=== PATIENT | male | born 1975 | race Caucasian/White ===

== ENCOUNTER 2018-04-05 18:58 | Emergency (ER) | END 2018-04-06 03:14 | disposition home or self-care (01) ==

== ENCOUNTER 2018-04-10 14:34 | Emergency (ER) | END 2018-04-10 16:59 | disposition home or self-care (01) ==

== ENCOUNTER 2018-04-11 11:12 | Inpatient (IN) | payer MEDICAID ==
[~2018-04-11] VITALS: Ht 175.3 cm; Wt 74.7 kg
[~2018-04-11 11:12] MED LIST: ACYC800T5 PO; CEPH-443 PO; HYDR-3980 PO; SULF1TAB31 PO
[2018-04-11] MEDS ORDERED: PIPER-TAZO 3.375 GM IV (PMX) 100 ML IVPB STA (11:50)
[2018-04-11] MEDS ORDERED: CLINDAMYCIN 900 MG/D5W (PMX) 50 ML IVPB STA (11:50)
[2018-04-11] MEDS ORDERED: SODIUM CHLORIDE 0.9% 1L BAG IV* STA (11:50)
[2018-04-11] MEDS ORDERED: morphine 4 MG/ML VIAL IV STA (11:50)
[2018-04-11] MEDS ORDERED: VANCOMYCIN 1 GM (PMX) 250 ML IVPB STA (11:50)
[2018-04-11] MEDS ORDERED: IBUPROFEN 600 MG TAB PO ONE (12:00)
[2018-04-11] MEDS ORDERED: ONDANSETRON 4 MG INJ IV PRN (13:00)
[2018-04-11] MEDS ORDERED: ACETAMINOPHEN 325 MG TAB PO PRN ×2 (13:00→16:30)
--- NOTE | 2018-04-11 14:50 | ERD ---
ER Documentation Chief Complaint Chief Complaint SEEN HERE YESTERDAY FOR SHINGLES RASH. TOLD TO COME BACK IF WORSE HPI 42-year-old male with no significant past medical history presenting with right arm pain and rash. He initially presented to the ER on 04/06/2018 for a vesicular rash to the right upper extremity. He was diagnosed with shingles and discharged with acyclovir and pain medications. He returned yesterday due to wo rsening symptoms and was diagnosed with a bacterial infection and prescribed antibiotics which he has been taking for the past 24 hours. He has not noticed any significant improvement. He feels like his symptoms are worsening with associated fevers and chills. He denies any history of IV drug use or immune compromise. He has been compliant with all of his medications. ROS All systems reviewed and are negative except as per history of present illness. Medications Home Meds Active Scripts Cephalexin* (Keflex*) 500 Mg Capsule, 500 MG PO QID for 10 Days, CAP Prov:GUILLE MICHAEL MD 04/10/18 Sulfamethoxazole/Trimethoprim* (Bactrim Ds* Tablet) 1 Each Tablet, 1 TAB PO BID, #20 TAB Prov:GUILLE MICHAEL MD 04/10/18 Hydrocodone/Acetaminophen ([place] 10-325 Tablet) 1 Each Tablet, 1 TAB PO Q6H PRN for PAIN, #20 TAB Prov:TONEY NEVAREZ 04/06/18 Acyclovir* (Zovirax*) 800 Mg Tablet, 800 MG PO 5 TIMES DAILY for 7 Days, TAB Prov:TONEY NEVAREZ 04/06/18 Allergies Allergies: Coded Allergies: No Known Allergy (Unverified , 04/11/18) PMhx/Soc Medical and Surgical Hx: pt denies Medical Hx, pt denies Surgical Hx Hx Alcohol Use: No Hx Substance Use: Yes (MARIJUANA) Hx Tobacco Use: Yes Smoking Status: Current some day smoker FmHx Family History: No diabetes Physical Exam Vitals Vital Signs Date Temp Pulse Resp B/P (MAP) Pulse Ox O2 O2 Flow FiO2 Time Delivery Rate 04/11/18 101.1 12:38 04/11/18 101.1 128 18 187/105 97 11:17 (132) Physical Exam Const: Mild distress secondary to pain, nontoxic Head: Atraumatic Eyes: Normal Conjunctiva ENT: Normal External Ears, Nose and Mouth. Neck: Full range of motion. No meningismus. Resp: Clear to auscultation bilaterally Cardio: Tachycardic with regular rhythm, no murmurs Abd: Soft, non tender, non distended. Normal bowel sounds Skin: Extensive tattoos of upper body. Right upper extremity with macular patchy rash extending from the wrist all the way up to the right shoulder. There appears to be ruptured vesicles with superficial ulceration of the skin. In the antecubital fossa, there is significant erythema with purulent drainage. No crepitus to palpation. Compartments soft. 2+ radial pulse. Tendon function intact. Back: No midline or flank tenderness Ext: No cyanosis, or edema Neur: Awake and alert, normal speech, moving all extremities. Strength and sensations intact. Psych: Normal Mood and Affect Result Diagram: 04/11/18 1200 04/11/18 1200 Results 24 hrs Laboratory Tests Test 04/11/18 12:00 04/11/18 12:10 White Blood Count 12.9 10^3/ul Red Blood Count 4.23 10^6/ul Hemoglobin 12.8 g/dl Hematocrit 37.7 % Mean Corpuscular Volume 89.1 fl Mean Corpuscular Hemoglobin 30.3 pg Mean Corpuscular Hemoglobin Concent 34.0 g/dl Red Cell Distribution Width 13.2 % Platelet Count 279 10^3/UL Mean Platelet Volume 8.7 fl Immature Granulocytes % 0.400 % Neutrophils % 72.9 % Lymphocytes % 18.6 % Monocytes % 6.1 % Eosinophils % 1.5 % Basophils % 0.5 % Nucleated Red Blood Cells % 0.0 /100WBC Immature Granulocytes # 0.050 10^3/ul Neutrophils # 9.4 10^3/ul Lymphocytes # 2.4 10^3/ul Monocytes # 0.8 10^3/ul Eosinophils # 0.2 10^3/ul Basophils # 0.1 10^3/ul Nucleated Red Blood Cells # 0.0 10^3/ul Prothrombin Time 14.3 Sec Prothrombin Time Ratio 1.1 INR International Normalized Ratio 1.09 Activated Partial Thromboplast Time 36.0 Sec Sodium Level 138 mmol/L Potassium Level 4.0 mmol/L Chloride Level 103 mmol/L Carbon Dioxide Level 27 mmol/L Anion Gap 8 Blood Urea Nitrogen 12 mg/dl Creatinine 0.76 mg/dl Est Glomerular Filtrat Rate mL/min > 60 mL/min Glucose Level 117 mg/dl Calcium Level 8.5 mg/dl Total Bilirubin 0.5 mg/dl Direct Bilirubin 0.00 mg/dl Indirect Bilirubin 0.5 mg/dl Aspartate Amino Transf (AST/SGOT) 203 IU/L Alanine Aminotransferase (ALT/SGPT) 512 IU/L Alkaline Phosphatase 136 IU/L Total Protein 8.4 g/dl Albumin 3.5 g/dl Globulin 4.90 g/dl Albumin/Globulin Ratio 0.71 POC Venous Lactate 1.3 mmol/L Current Medications Medications Dose Sig/Juan Start Time Status Last (Trade) Ordered Route PRN Stop Time Admin Dose Reason Admin Sodium 2,300 ml BOLUS OVER 2 04/11/18 DC 04/11/18 Chloride HOURS STAT 11:50 12:37 (NS) IV* 04/11/18 11:53 Morphine 4 mg ONCE STAT 04/11/18 DC 04/11/18 Sulfate IV 11:50 12:39 (morphine) 04/11/18 11:53 Vancomycin 250 ml @ ONCE STAT 04/11/18 DC HCl 125 mls/hr IVPB 11:50 04/11/18 13:49 Clindamycin 50 ml @ 50 ONCE STAT 04/11/18 DC 04/11/18 HCl/ mls/hr IVPB 11:50 11:50 Dextrose 04/11/18 12:49 Piperacillin 100 ml @ ONCE STAT 04/11/18 DC 04/11/18 Sod/ 200 mls/hr IVPB 11:50 12:37 Tazobactam 04/11/18 Sod 12:19 Ibuprofen 600 mg ONCE ONCE 04/11/18 DC 04/11/18 (Motrin) PO 12:00 12:38 04/11/18 12:01 Ondansetron 4 mg BRIDGE ORDER 04/11/18 HCl (Zofran PRN IV 13:00 Inj) NAUSEA AND/OR 04/12/18 VOMITING 12:59 650 mg ER BRIDGE 04/11/18 Acetaminophen PRN PO MILD 13:00 (Tylenol PAIN(1-3)OR 04/12/18 Tab) ELEVATED TEMP 12:59 Procedures/MDM EMERGENT LABS AND DIAGNOSTIC STUDIES: Lab Results above were reviewed and interpreted by me. CBC: Leukocytosis consistent with acute infection CMP: Transaminitis of unclear etiology. No evidence of electrolyte abnormality, renal failure, hypoglycemia, or biliary obstruction Lactate within normal limits without evidence of sepsis or tissue hypoperfusion Radiology Results as interpreted by Radiology below were reviewed by Isma Horne MD: Right elbow x-ray is unremarkable with no evidence of soft tissue gas Initial Nursing notes reviewed. Previous Medical Records requested via the Electronic Health Record. EMERGENCY DEPARTMENT COURSE / MEDICAL DECISION MAKING: Patient likely has right upper extremity shingles that became superinfected and now has an extensive cellulitis of the right upper extremity failing outpatient antibiotic treatment. Here he has a fever and is tachycardic so sepsis workup was initiated. Broad-spectrum antibiotics were given. I doubt necrotizing soft tissue infection. However patient's infectious symptoms have not stabilized and the patient is at risk of rapid decompensation. The patient will be admitted for careful hydration, antibiotic therapy, and infectious source control. Severe Sepsis Assessment: Infectious Source: Right upper extremity cellulitis Severe Sepsis Managment: Blood Cultures X 2 before broad spectrum antibiotics initiated within 3 hours of recognition. 30 ml/kg NS bolus Completed Initial Lactate: normal Repeat Lactate not indicated as initial < 2.0 Critical Care: Time: 35 minutes Treatments/Evaluations: Emergent fluid management, while maintaining close respiratory support. Immediate broad spectrum antibiotic therapy. Simultaneous assessment for possible sources in order to direct therapy. Consideration for invasive and chemical support to prevent respiratory or cardiac collapse. Septic Shock Assessment (1 hour post 30 ml/kg fluid bolus): Hypotension (SBP < 90 or 40 mmHg drop, MAP < 65): No Lactic acid > 4.0 No Accepting Care Team: Current data and ongoing care discussed. Time: Time of admission Primary Provider: Dr. Rodriguez Outstanding Data: Blood and wound cultures Departure Diagnosis: Primary Impression: Right arm cellulitis Additional Impressions: Zoster with other complications Shingles rash Herpes zoster complications: with other complications Qualified Codes: B0 2.8 - Zoster with other complications Condition: Serious YOSEF HORNE MD Apr 11, 2018 14:50
--- NOTE | 2018-04-11 16:12 | HP ---
Date/Time of Note Date/Time of Note DATE: 04/11/18 TIME: 16:01 Assessment/Plan VTE Prophylaxis Pharmacological prophylaxis: heparin Lines/Catheters IV Catheter Type (from Nrs): Saline Lock Assessment/Plan Hospital Course 42 yo male with recent shingles infection of RUE which has now developed worsening superinfection - MRI RUE to r/o abscess - Continue vanco/zosyn - Acyclovir - ID consultation Transaminitis: - Suspect related to VZV infection but perhaps drug effect. RUQ US, trend LFTs and INR Result Diagram: 04/11/18 1200 04/11/18 1200 Results 24hrs Laboratory Tests Test 04/11/18 12:00 04/11/18 12:10 White Blood Count 12.9 #H Red Blood Count 4.23 L Hemoglobin 12.8 L Hematocrit 37.7 L Mean Corpuscular Volume 89.1 Mean Corpuscular Hemoglobin 30.3 Mean Corpuscular Hemoglobin Concent 34.0 Red Cell Distribution Width 13.2 Platelet Count 279 # Mean Platelet Volume 8.7 Immature Granulocytes % 0.400 Neutrophils % 72.9 Lymphocytes % 18.6 Monocytes % 6.1 Eosinophils % 1.5 Basophils % 0.5 Nucleated Red Blood Cells % 0.0 Immature Granulocytes # 0.050 H Neutrophils # 9.4 H Lymphocytes # 2.4 Monocytes # 0.8 Eosinophils # 0.2 Basophils # 0.1 Nucleated Red Blood Cells # 0.0 Prothrombin Time 14.3 Prothrombin Time Ratio 1.1 INR International Normalized Ratio 1.09 Activated Partial Thromboplast Time 36.0 H Sodium Level 138 Potassium Level 4.0 Chloride Level 103 Carbon Dioxide Level 27 Anion Gap 8 Blood Urea Nitrogen 12 Creatinine 0.76 Est Glomerular Filtrat Rate mL/min > 60 Glucose Level 117 Calcium Level 8.5 Total Bilirubin 0.5 Direct Bilirubin 0.00 Indirect Bilirubin 0.5 Aspartate Amino Transf (AST/SGOT) 203 H Alanine Aminotransferase (ALT/SGPT) 512 H Alkaline Phosphatase 136 H Total Protein 8.4 H Albumin 3.5 Globulin 4.90 H Albumin/Globulin Ratio 0.71 POC Venous Lactate 1.3 HPI/ROS Admit Date/Time Admit Date/Time Hx of Present Illness 42 yo male without sig PMH who presents again with arm pain, rash and fever Patient developed shingles a week ago. Lesions started as vesicles accross RUE dermatome. Developed overlying cellulitis and came to ED. Prescribed bactrim, cipro and acyclovir. Lesions have now popped. Pus now being expressed from elbow lesion. Can't bend elbow. Having fevers. PMH/Family/Social Past Medical History Medical History: no pertinent history Medications Current Medications Ondansetron HCl (Zofran Inj) 4 mg BRIDGE ORDER PRN IV NAUSEA AND/OR VOMITING; Start 04/11/18 at 13:00; Stop 04/12/18 at 12:59 Acetaminophen (Tylenol Tab) 650 mg ER BRIDGE PRN PO MILD PAIN(1-3)OR ELEVATED TEMP; Start 04/11/18 at 13:00; Stop 04/12/18 at 12:59 Coded Allergies: No Known Allergy (Unverified , 04/11/18) Past Surgical History Past Surgical Hx: no surgical history Family History Significant Family History: no pertinent family hx Social History Alcohol Use: none Smoking Status: Current some day smoker Drug Use: none Exam/Review of Systems Vital Signs Vitals Vital Signs Date Temp Pulse Resp B/P (MAP) Pulse Ox O2 O2 Flow FiO2 Time Delivery Rate 04/11/18 100.5 88 18 148/99 97 15:49 (115) Exam Exam Well appearing no distress AOx3 Open erosions of RUE from shoulder externally down to elbow. Inner forearm with pus lesions. Erythema throughout. Warm throughout LISA OVIEDO MD Apr 11, 2018 16:12
[2018-04-11] MEDS ORDERED: VANCOMYCIN IV PER PHARMACY XX SCH (16:30)
[2018-04-11] MEDS ORDERED: NACL 0.9% 3 ML SYG IV SCH (16:30)
[2018-04-11 17:00] VITALS: BP 148/95; PULSE 76; RESP 18
[2018-04-11 17:58] VITALS: Ht 175.3 cm; Wt 74.7 kg
[2018-04-11] MEDS ORDERED: PIPER-TAZO 3.375 GM IV (PMX) 100 ML IVPB SCH (18:00)
--- NOTE | 2018-04-11 18:01 | NUR ---
Received patient from ED in stable condition .Alessandra WNL .Skin assessment and wound care done ,pictures done per protocol .Patient come with a bag of Vancomycine running .Pharmacy aware.Patient placed on airborne and contact isolation.Call light within reach Full report will be given to next shift RN.
[2018-04-11] MEDS: HYDROCODONE/APAP (5/325) TAB PO PRN (18:27)
--- NOTE | 2018-04-11 18:29 | NUR ---
VANCO PER RX: 42M 5FT 9 IN. 75 KG SCR 0.76 WBC 12.9 Problem List: Recent shingles infection of RUE which has now developed worsening superinfection Current ABXs: VANCO, ZOSYN, VALTREX Comments/Plan: VANCO 1 GM GIVEN AT ER FOLLOWED BY 750 MG IVPB Q8H. TROUGH TOMORROW.
[2018-04-11] MEDS: PIPER-TAZO 3.375 GM IV (PMX) 100 ML IVPB SCH ×2 (18:57→23:48)
[2018-04-11 19:36] VITALS: BP 149/91; PULSE 79; RESP 18
[2018-04-11] MEDS: VANCOMYCIN 750 MG in SOD CHLORIDE 0.9% 150 ML IVPB SCH (21:38)
[2018-04-11] MEDS: HEPARIN 5,000 UNIT/1 ML VIAL SC SCH (21:46)
[2018-04-11] MEDS: VALACYCLOVIR 500 MG TAB PO SCH (22:05)
[2018-04-12 01:53] VITALS: BP 157/98; PULSE 66; RESP 18
[2018-04-12] MEDS: PIPER-TAZO 3.375 GM IV (PMX) 100 ML IVPB SCH (05:11)
[2018-04-12] MEDS: HYDROCODONE/APAP (5/325) TAB PO PRN ×2 (05:15→13:17)
[2018-04-12] MEDS: VANCOMYCIN 750 MG in SOD CHLORIDE 0.9% 150 ML IVPB SCH ×3 (06:09→21:39)
--- NOTE | 2018-04-12 06:29 | NUR ---
ASLEEP RESTING COMFORTABLY IN BED. NO ACUTE CHANGES OVERNIGHT. ALL DUE MEDS GIVEN AND TOLERATED WELL. CONTINUES ON AIRBORNE PRECAUTIONS FOR SHINGLES. PAIN MEDICATION ADMINISTERED X1 AND EFFECTIVE. HOURLY ROUNDING DONE. PT ABLE TO AMBULATE WITH STEADY GAIT. ALL NEEDS ATTENDED. CALL LIGHT WITHIN EASY REACH. WILL ENDORSE TO NEXT SHIFT.
--- NOTE | 2018-04-12 07:48 | NUR ---
Critical Result recieved: Nurse Clarissa could not answer call from lab, Critical results on HIV testing received and endorsed to Clarissa primary Nurse.
[2018-04-12 08:10] VITALS: BP 151/83; PULSE 85; RESP 18
[2018-04-12] MEDS: VALACYCLOVIR 500 MG TAB PO SCH ×3 (09:57→21:39)
[2018-04-12] MEDS: HEPARIN 5,000 UNIT/1 ML VIAL SC SCH ×2 (10:01→21:44)
--- NOTE | 2018-04-12 10:13 | CONS ---
Date/Time of Note Date/Time of Note DATE: 04/12/18 TIME: 10:02 Assessment/Plan Assessment/Plan Chief Complaint/Hosp Course 1) VZV with superinfection with staph continue with high dose valtrex and vanco, will d/c zosyn await for drug sensi's to his staph 2) hepatitis he is HIV is positive but he tested neg about one year ago according to the patient he was told that he had hepatitis in the past but he is not sure which one, when I mentioned hep C he said that he cleared this on his own I will order CD4 counts, HIV PCR hep C pcr has already been ordered shingles itself can also cause increase in LFT's his LFT's are decreasing Consultation Date/Type/Reason Admit Date/Time 04/11/18 Date of Consultation: Apr 12, 2018 Type of Consult ID Hx of Present Illness pt has had a painful rash to RUE for over a week He was seen in ER and Rx with oral acyclovir He then developed redness to the arm and was given keflex/bactrim and the pain/redness of arm had gotten worse and he was admitted to the hospital Pt has MOON prior to all of this but it is better today no N, V, D, SOB no dysuria, joint pains His MOON is pounding in nature and causes some blurriness of this R eye Past Medical History Medical History: no pertinent history Medications Current Medications Vancomycin HCl (Vanco Iv Per Pharmacy) VANCOMYCIN PER PHARMACY PER PROTOCOL XX ; Start 04/11/18 at 16:30 Valacyclovir HCl (Valtrex) 1,000 mg TID PO Last administered on 04/12/18at 09:57; Admin Dose 1,000 MG; Start 04/11/18 at 21:00 IV Flush (NS 3 ml) 3 ml PER PROTOCOL IV ; Start 04/11/18 at 16:30 Acetaminophen (Tylenol Tab) 650 mg Q6H PRN PO PAIN LEVEL 1-3 OR FEVER; Start 04/11/18 at 16:30 Acetaminophen/ Hydrocodone Bitart ([place] (5/325)) 2 tab Q6H PRN PO SEVERE PAIN LEVEL 7-10 Last administered on 04/12/18at 05:15; Admin Dose 2 TAB; Start 04/11/18 at 16:30 Heparin Sodium (Porcine) (Heparin (5000 Units/1ml)) 5,000 unit Q12 SC Last administered on 04/12/18at 10:01; Admin Dose 5,000 UNIT; Start 04/11/18 at 21:00 Piperacillin Sod/ Tazobactam Sod 100 ml @ 200 mls/hr Q6 IVPB Last administered on 04/12/18at 05:11; Admin Dose 200 MLS/HR; Start 04/11/18 at 18:00 Vancomycin HCl 750 mg/Sodium Chloride 150 ml @ 75 mls/hr Q8H IVPB Last administered on 04/12/18at 06:09; Admin Dose 75 MLS/HR; Start 04/11/18 at 22:00 Miscellaneous Information (*Rx Drug Level Order Reminder*) VANCO TROUGH ON 03/20... ONCE ONCE XX ; Start 04/13/18 at 21:00; Stop 04/13/18 at 21:01 Allergies: Coded Allergies: No Known Allergy (Unverified , 04/11/18) Past Surgical History Past Surgical Hx: no surgical history Social History Alcohol Use: none Smoking Status: Current every day smoker Drug Use: none Exam/Review of Systems Vital Signs Vitals Vital Signs Date Temp Pulse Resp B/P (MAP) Pulse Ox O2 O2 Flow FiO2 Time Delivery Rate 04/12/18 98.3 85 18 151/83 97 Room Air 08:10 (105) Intake and Output 04/11/18 04/11/18 04/12/18 1515:00 23:00 07:00 IntakeIntake Total 100 ml 350 ml BalanceBalance 100 ml 350 ml Exam Constitutional: alert, oriented Eyes: nl sclera ENMT: mucosa pink and moist Neck: supple Respiratory: clear to auscultation Cardiovascular: regular rate and rhythm Gastrointestinal: soft, non-tender Extremities: other (RUE has scabs and pustules, scattered and some firmness of skin around large draining lesion with surrounding redness) Medications Medications Current Medications Vancomycin HCl (Vanco Iv Per Pharmacy) VANCOMYCIN PER PHARMACY PER PROTOCOL XX ; Start 04/11/18 at 16:30 Valacyclovir HCl (Valtrex) 1,000 mg TID PO Last administered on 04/12/18at 09:57; Admin Dose 1,000 MG; Start 04/11/18 at 21:00 IV Flush (NS 3 ml) 3 ml PER PROTOCOL IV ; Start 04/11/18 at 16:30 Acetaminophen (Tylenol Tab) 650 mg Q6H PRN PO PAIN LEVEL 1-3 OR FEVER; Start 04/11/18 at 16:30 Acetaminophen/ Hydrocodone Bitart ([place] (5/325)) 2 tab Q6H PRN PO SEVERE PAIN LEVEL 7-10 Last administered on 04/12/18at 05:15; Admin Dose 2 TAB; Start 04/11/18 at 16:30 Heparin Sodium (Porcine) (Heparin (5000 Units/1ml)) 5,000 unit Q12 SC Last administered on 04/12/18at 10:01; Admin Dose 5,000 UNIT; Start 04/11/18 at 21:00 Piperacillin Sod/ Tazobactam Sod 100 ml @ 200 mls/hr Q6 IVPB Last administered on 04/12/18at 05:11; Admin Dose 200 MLS/HR; Start 04/11/18 at 18:00 Vancomycin HCl 750 mg/Sodium Chloride 150 ml @ 75 mls/hr Q8H IVPB Last administered on 04/12/18at 06:09; Admin Dose 75 MLS/HR; Start 04/11/18 at 22:00 Miscellaneous Information (*Rx Drug Level Order Reminder*) VANCO TROUGH ON 03/20... ONCE ONCE XX ; Start 04/13/18 at 21:00; Stop 04/13/18 at 21:01 TANESHA KWONG MD Apr 12, 2018 10:13
--- NOTE | 2018-04-12 10:15 | PN ---
Date/Time of Note Date/Time of Note DATE: 04/12/18 TIME: 10:13 Assessment/Plan VTE Prophylaxis Risk score (from Ns)>0 risk: 1 SCD applied (from Ns): Yes Pharmacological prophylaxis: heparin Lines/Catheters IV C[facility]ter Type [facility]from [facility]): Peripheral IV Assessment/Plan Hospital Course 42 yo male with recent shingles infection of RUE which has now developed worsening superinfection/cellulitis, found to have new dx of HIV - MRI RUE negative for abscess - Await culture results - Continue vanco/zosyn - Valtrex - ID consultation HIV: - PCR and Cd4 - ID consultation Transaminitis: - Suspect related to VZV infection but perhaps drug effect vs acute HIV. RUQ US, trend LFTs and INR Dispo pending improvement in condition Result Diagram: 04/12/18 0441 04/12/18 0440 Results 24hrs Laboratory Tests Test 04/11/18 12:00 04/11/18 12:10 04/11/18 15:48 04/12/18 04:40 White Blood 12.9 #H Count Red Blood Count 4.23 L Hemoglobin 12.8 L Hematocrit 37.7 L Mean Corpuscular 89.1 Volume Mean Corpuscular 30.3 Hemoglobin Mean Corpuscular 34.0 Hemoglobin Yan[place] nt Red Cell 13.2 Distribution Width Platelet Count 279 # Mean Platelet 8.7 Volume Immature 0.400 Granulocytes % Neutrophils % 72.9 Lymphocytes % 18.6 Monocytes % 6.1 Eosinophils % 1.5 Basophils % 0.5 Nucleated Red 0.0 Blood Cells % Immature 0.050 H Granulocytes # Neutrophils # 9.4 H Lymphocytes # 2.4 Monocytes # 0.8 Eosinophils # 0.2 Basophils # 0.1 Nucleated Red 0.0 Blood Cells # Prothrombin Time 14.3 Prothrombin Time 1.1 Ratio INR 1.09 International Normalized Ratio Activated 36.0 H Partial Thrombop last Time Sodium Level 138 140 Potassium Level 4.0 4.0 Chloride Level 103 103 Carbon Dioxide 27 26 Level Anion Gap 8 11 Blood Urea 12 14 Nitrogen Creatinine 0.76 0.75 Est Glomerular > 60 > 60 Filtrat Rate mL/min Glucose Level 117 96 Calcium Level 8.5 8.5 Total Bilirubin 0.5 0.5 Direct Bilirubin 0.00 0.00 Indirect 0.5 0.5 Bilirubin Aspartate Amino 203 H 192 H Transf (AST/SGOT ) Alanine 512 H 441 H Aminotransferase (ALT/SGPT) Alkaline 136 H 130 H Phosphatase Total Protein 8.4 H 7.5 Albumin 3.5 3.3 Globulin 4.90 H 4.20 H Albumin/Globulin 0.71 0.78 Ratio POC Venous 1.3 Lactate Lactic Acid 0.8 Level Hemoglobin A1c 5.2 Hepatitis B NEGATIVE Surface Antigen Hepatitis B Core REACTIVE H Total Antibody Hepatitis C REACTIVE H Antibody HIV (1&2) REACTIVE H Antibody Test 04/12/18 04:41 White Blood 7.2 # Count Red Blood Count 4.39 L Hemoglobin 13.1 L Hematocrit 39.7 L Mean Corpuscular 90.4 Volume Mean Corpuscular 29.8 Hemoglobin Mean Corpuscular 33.0 Hemoglobin Yaneth nt Red Cell 13.2 Distribution Width Platelet Count 271 Mean Platelet 9.0 Volume Immature 0.300 Granulocytes % Neutrophils % 62.0 Lymphocytes % 23.7 Monocytes % 7.1 Eosinophils % 6.1 Basophils % 0.8 Nucleated Red 0.0 Blood Cells % Immature 0.020 Granulocytes # Neutrophils # 4.4 Lymphocytes # 1.7 Monocytes # 0.5 Eosinophils # 0.4 Basophils # 0.1 Nucleated Red 0.0 Blood Cells # Subjective 24 Hr Interval Summary Free Text/Dictation Arm improving. MRI without abscess HIV Ab+. This is new diagnosis. I discussed it with the patient who is understandably upset He was aware of HCV + but says he cleared virus Exam/Review of Systems Vital Signs Vitals Vital Signs Date Temp Pulse Resp B/P (MAP) Pulse Ox O2 O2 Flow FiO2 Time Delivery Rate 04/12/18 98.3 85 18 151/83 97 Room Air 08:10 (105) Intake and Output 04/11/18 04/11/18 04/12/18 1515:00 23:00 07:00 IntakeIntake Total 100 ml 350 ml BalanceBalance 100 ml 350 ml Medications Medications Current Medications Vancomycin HCl (Vanco Iv Per Pharmacy) VANCOMYCIN PER PHARMACY PER PROTOCOL XX ; Start 04/11/18 at 16:30 Valacyclovir HCl (Valtrex) 1,000 mg TID PO Last administered on 04/12/18at 09:57; Admin Dose 1,000 MG; Start 04/11/18 at 21:00 IV Flush (NS 3 ml) 3 ml PER PROTOCOL IV ; Start 04/11/18 at 16:30 Acetaminophen (Tylenol Tab) 650 mg Q6H PRN PO PAIN LEVEL 1-3 OR FEVER; Start 04/11/18 at 16:30 Acetaminophen/ Hydrocodone Bitart ([place] (5/325)) 2 tab Q6H PRN PO SEVERE PAIN LEVEL 7-10 Last administered on 04/12/18at 05:15; Admin Dose 2 TAB; Start 04/11/18 at 16:30 Heparin Sodium (Porcine) (Heparin (5000 Units/1ml)) 5,000 unit Q12 SC Last administered on 04/12/18at 10:01; Admin Dose 5,000 UNIT; Start 04/11/18 at 21:00 Vancomycin HCl 750 mg/Sodium Chloride 150 ml @ 75 mls/hr Q8H IVPB Last administered on 04/12/18at 06:09; Admin Dose 75 MLS/HR; Start 04/11/18 at 22:00 Miscellaneous Information (*Rx Drug Level Order Reminder*) VANCO TROUGH ON 03/20... ONCE ONCE XX ; Start 04/13/18 at 21:00; Stop 04/13/18 at 21:01 LISA OVIEDO MD Apr 12, 2018 10:15
[2018-04-12 14:08] VITALS: BP 160/95; PULSE 93; RESP 16
[2018-04-12] MEDS ORDERED: ASA/ACETAMINOPHEN/CAFF TAB PO ONE (17:00)
--- NOTE | 2018-04-12 19:05 | NUR ---
End of shift summary: Patient in stable condition . patient has episode of migraine .Excedrin-2 tab given once per order . consulted patient today .New labs ordered for AM .US liver done for today .Wound care consult pending .Full report will be given to next shift RN.
[2018-04-12 20:01] VITALS: BP 151/91; PULSE 94; RESP 16
--- NOTE | 2018-04-12 21:58 | NUR ---
VANCOMYCIN PER PHARMACY NOTE VANCO TR= 8.5 OK THAT VANCOMYCIN 750MG IV HAS ALREADY BEEN GIVEN. INCREASE NEXT VANCOMYCIN DOSE TO 1 GRAM IV Q8 HOURS FOR NOW. NEXT DOSE 04/13 AT 0600. NEXT VANCO TR PRIOR TO 4TH DOSE. PHARMACY WILL FOLLOW. THANK YOU.
--- NOTE | 2018-04-12 23:08 | NUR ---
VANCO Vanco 750MG started at 2138. Vanvo 750MG was d/c at 2152 and increased to 1GM d/t low vanco trough level of 8.5. Called pharmacist to confirm if I should stop current 750MG bag that is currently running and he said it is ok to finish bag and new 1GM bag will start at 0400 tomorrow. Will finish current bag that is running.
[2018-04-13 01:31] VITALS: BP 172/115; PULSE 94; RESP 16
--- NOTE | 2018-04-13 01:48 | NUR ---
ELEVATED BP Notified Dr. Rivera of high BP since 04/12/18. Pt denies pain. Received new orders for Hydralazine 10MG IV Q4Hour PRN and give 1 dose now. Will carry out new orders. Will continue to monitor.
[2018-04-13] MEDS ORDERED: hydrALAzine 20 MG INJ IV PRN (02:00)
[2018-04-13] MEDS ORDERED: VANCOMYCIN 1 GM 250 ML IVPB SCH (04:00)
[2018-04-13 04:13] VITALS: BP 163/104; PULSE 82; RESP 20
[2018-04-13] MEDS: HYDROCODONE/APAP (5/325) TAB PO PRN (04:29)
--- NOTE | 2018-04-13 06:18 | NUR ---
EOSS No acute changes in patient's condition. BP high. Hydralazine given X1. Meds partially effective. Pt A &OX3. All due meds given. Pt c/o 11/26 pain in right arm X1. [place] given. Pain meds effective. Contact and airborne precautions maintained. Dressing change done. Hourly rounding done. Bed left in lowest position with bed alarm on. Call light left within reach.
--- NOTE | 2018-04-13 07:23 | CONS ---
Date/Time of Note Date/Time of Note DATE: 04/13/18 TIME: 07:17 Assessment/Plan Assessment/Plan Chief Complaint/Hosp Course 1) VZV with superinfection with staph continue with high dose valtrex and vanco, will d/c zosyn await for drug sensi's to his staph 04/13 - MRSA of wound resistant to bactrim but sensitive to doxy d/c vanco and start doxycycline for 10 days at 100mg BID continue valtrex for another 3 days Rx left with nurse ok for d/c from ID perspective 2) hepatitis he is HIV is positive but he tested neg about one year ago according to the patient he was told that he had hepatitis in the past but he is not sure which one, when I mentioned hep C he said that he cleared this on his own I will order CD4 counts, HIV PCR hep C pcr has already been ordered shingles itself can also cause increase in LFT's his LFT's are decreasing 04/13 - liver u/s was ok a.m. labs are pending but if further improved ok for d/c 3)HIV 04/13 - instructed pt to call back to Dr. rivero regard results of his CD4, HIV PCR and Hep C PCR Consultation Date/Type/Reason Admit Date/Time Apr 12, 2018 at 13:19 Initial Consult Date 04/12/18 Type of Consult ID 24 HR Interval Summary Free Text/Dictation pt states no longer has pain to R arm no N, V, D Exam/Review of Systems Vital Signs Vitals Vital Signs Date Temp Pulse Resp B/P (MAP) Pulse Ox O2 O2 Flow FiO2 Time Delivery Rate 04/13/18 82 20 163/104 96 Room Air 04:13 (123) 04/13/18 97.9 01:31 Intake and Output 04/12/18 04/12/18 04/13/18 1515:00 23:00 07:00 IntakeIntake Total 840 ml 630 ml 400 ml BalanceBalance 840 ml 630 ml 400 ml Exam Constitutional: alert, oriented Eyes: nl sclera Respiratory: clear to auscultation Cardiovascular: regular rate and rhythm Extremities: other (R arm, scabs with some open wounds that are weeping but less so, many had dried up) Medications Medications Current Medications Vancomycin HCl (Vanco Iv Per Pharmacy) VANCOMYCIN PER PHARMACY PER PROTOCOL XX ; Start 04/11/18 at 16:30 Valacyclovir HCl (Valtrex) 1,000 mg TID PO Last administered on 04/12/18at 21:39; Admin Dose 1,000 MG; Start 04/11/18 at 21:00 IV Flush (NS 3 ml) 3 ml PER PROTOCOL IV ; Start 04/11/18 at 16:30 Acetaminophen (Tylenol Tab) 650 mg Q6H PRN PO PAIN LEVEL 1-3 OR FEVER; Start 04/11/18 at 16:30 Acetaminophen/ Hydrocodone Bitart ([place] (5/325)) 2 tab Q6H PRN PO SEVERE PAIN LEVEL 7-10 Last administered on 04/13/18at 04:29; Admin Dose 2 TAB; Start 04/11/18 at 16:30 Heparin Sodium (Porcine) (Heparin (5000 Units/1ml)) 5,000 unit Q12 SC Last administered on 04/12/18at 21:44; Admin Dose 5,000 UNIT; Start 04/11/18 at 21:00 Miscellaneous Information (*Rx Drug Level Order Reminder*) VANCO TROUGH ON 03/20... ONCE ONCE XX ; Start 04/13/18 at 21:00; Stop 04/13/18 at 21:01 Vancomycin HCl 250 ml @ 125 mls/hr Q8H IVPB Last administered on 04/13/18at 04:10; Admin Dose 125 MLS/HR; Start 04/13/18 at 04:00 Hydralazine HCl (Apresoline) 10 mg Q4H PRN IV ELEVATED DIASTOLIC BP Last administered on 04/13/18at 02:07; Admin Dose 10 MG; Start 04/13/18 at 02:00 TANESHA KWONG MD Apr 13, 2018 07:23
[2018-04-13 07:40] VITALS: BP 166/112; PULSE 79; RESP 20
[2018-04-13] MEDS: HEPARIN 5,000 UNIT/1 ML VIAL SC SCH (08:53)
[2018-04-13] MEDS: VALACYCLOVIR 500 MG TAB PO SCH (08:53)
[2018-04-13] MEDS ORDERED: DOXYCYCLINE 100 MG TAB PO SCH (09:00)
[2018-04-13] MEDS ORDERED: VALA500T PO (12:30)
[2018-04-13] MEDS ORDERED: DOXY100T2 PO (12:30)
--- NOTE | 2018-04-13 12:31 | PDOCDIS ---
Discharge Instructions DIAGNOSIS Discharge Diagnosis Shingles Cellulitis HIV CONDITION [id number] Patient Condition: [id number] Stable HOME CARE INSTRUCTIONS: [id number] Diet Instructions: [id number] Regular [id number] Special Diet: Ghlsg6s Regular FOLLOW UP/APPOINTMENTS Follow-up Plan Make an appointment in HIV clinic [facility] to get started on therapy. You should have your blood work checked in the next 1-2 weeks to monitor your labs and specifically your liver panel to ensure it is normal. Return to the hospital if you have any concerning symptoms LISA OVIEDO MD Apr 13, 2018 12:31
--- NOTE | 2018-04-13 12:40 | DS ---
Date/Time of Note Date/Time of Note DATE: 04/13/18 TIME: 12:39 Discharge Summary Admission/Discharge Info Admit Date/Time Apr 12, 2018 at 13:19 Discharge Date/Time Discharge Diagnosis Shingles Cellulitis HIV Patient Condition: Stable Hx of Present Illness 42 yo male without sig PMH who presents again with arm pain, rash and fever Patient developed shingles a week ago. Lesions started as vesicles accross RUE dermatome. Developed overlying cellulitis and came to ED. Prescribed bactrim, cipro and acyclovir. Lesions have now popped. Pus now being expressed from elbow lesion. Can't bend elbow. Having fevers. Hospital Course 42 yo male with recent shingles infection of RUE which has now developed w orsening superinfection/cellulitis, found to have new dx of HIV Presented with sepsis. Found to have superinfection of shingles lesions of RUE. MRI showed no evidence of abcess. Treated wtih IV vanco/zosyn. Infection improved and sepsis resolved. Found to have HIV positive status and referred to outpatient clinic. Seen by Dr Neal who recommended outpatient follow up and completion of PO doxycline course Home Meds Active Scripts Doxycycline* (Vibramycin*) 100 Mg Tab, 100 MG PO BID for 10 Days, TAB Prov:LISA OVIEDO MD 04/13/18 Valacyclovir Hcl* (Valacyclovir Hcl*) 500 Mg Tablet, 1000 MG PO TID for 3 Days, #9 TAB Prov:LISA OVIEDO MD 04/13/18 Discontinued Scripts Cephalexin* (Keflex*) 500 Mg Capsule, 500 MG PO QID for 10 Days, CAP Prov:GUILLE MICHAEL MD 04/10/18 Sulfamethoxazole/Trimethoprim* (Bactrim Ds* Tablet) 1 Each Tablet, 1 TAB PO BID, #20 TAB Prov:GUILLE MICHAEL MD 04/10/18 Hydrocodone/Acetaminophen (Kiln 10-325 Tablet) 1 Each Tablet, 1 TAB PO Q6H PRN for PAIN, #20 TAB Prov:TONEY NEVAREZ 04/06/18 Acyclovir* (Zovirax*) 800 Mg Tablet, 800 MG PO 5 TIMES DAILY for 7 Days, TAB Prov:TONEY NEVAREZ 04/06/18 Follow-up Plan Make an appointment in HIV clinic [facility] to get started on therapy. You should have your blood work checked in the next 1-2 weeks to monitor your labs and specifically your liver panel to ensure it is normal. Return to the hospital if you have any concerning symptoms Primary Care Provider Care Physician No Primary Pending Labs Laboratory Tests Test 04/12/18 20:58 04/13/18 06:17 Vancomycin Level Trough 8.5 ug/ml (10.0-20.0) Sodium Level 139 mmol/L (135-144) Potassium Level 4.1 mmol/L (3.5-5.1) Chloride Level 103 mmol/L (97-110) Carbon Dioxide Level 27 mmol/L (21-31) Anion Gap 9 (5-13) Blood Urea Nitrogen 14 mg/dl (7-20) Creatinine 0.70 mg/dl (0.61-1.24) Est Glomerular Filtrat > 60 mL/min (>60) Rate mL/min Glucose Level 104 mg/dl (70-220) Calcium Level 9.0 mg/dl (8.4-10.2) Total Bilirubin 0.3 mg/dl (0.2-1.3) Direct Bilirubin 0.00 mg/dl (0.00-0.20) Indirect Bilirubin 0.3 mg/dl (0-1.1) Aspartate Amino Transf (AST/SGOT) 222 IU/L (15-46) Alanine 430 IU/L (13-69) Aminotransferase (ALT/SGPT) Alkaline Phosphatase 143 IU/L (42-121) Total Protein 7.9 g/dl (6.1-8.1) Albumin 3.6 g/dl (3.3-4.9) Globulin 4.30 g/dl (1.3-3.2) Albumin/Globulin Ratio 0.83 LISA OVIEDO MD Apr 13, 2018 12:40
--- NOTE | 2018-04-13 12:43 | NUR ---
AOX4, D/C IN STABLE CONDITION WITH BELONGINGS, REFUSED WHEELCHAIR ESCORT OFF THE UNIT, VERBALIZED UNDERSTANDING D/C INSTRUCTIONS REGARDING FOLLOW UP CARE, PRESCRIBED MEDICATIONS AND HIV CLINIC RESOURCES DISCUSSED WITH RESUME WRITER
--- NOTE | 2018-04-13 13:28 | NUR ---
SS NOTE: PROVIDED RESOURCES SW REFERRED TO PT REGARDING POSSIBLE HOMELESS ISSUES AND PROVISION OF HIV RESOURCES. PT IS 42 YR OLD MALE ADMITTED FROM HOME FOR RUE CELLULITIS. SW MET WITH PT AT BEDSIDE, PT APPEARED TO BE A&OX4 AND COPING APPROPRIATELY WITH ADMISSION. CM SONPAT ROBIN WAS ALSO PRESENT. PT STATED THAT HE WILL BE D/C TO [address] [facility] [address] IN [place]. PT STATED THAT HE WILL BE STAYING/LIVING WITH HIS FRIEND FABRICIO PORTER ([phone]) AT THE [facility] LOCATION. PT STATED THAT FABRICIO PORTER IS HIS PRIMARY SURROGATE DECISION MAKER. PT STATED THAT HE DOES NOT HAVE AN AHCD. PT IS SELF EMPLOYED. PT DENIED ALCOHOL/SUBSTANCE USE. PT DENIED MENTAL HEALTH HX. SW DISCUSSED, EDUCATED AND PROVIDED AHCD FORM. SW DISCUSSED AND PROVIDED HIV CLINIC RESOURCES. SW PROVIDED CONTROL SYSTEMS ENGINEER CONTACT INFO FOR ANY NEEDED RESOURCES. PLAN IS FOR PT'S FRIEND FABRICIO TO PROVIDE TRANSPORTATION AT D/C. SW REMAINS AVAILABLE FOR F/U NEEDED.
== END 2018-04-13 13:00 | disposition home or self-care (01) | DRG 872 ==
LOC: E/R 11:12 → 2NE 13:01 → CANRESERV 13:23 → OBSVTOIN 04-12 13:19
PROVIDERS: ADMIT Internal Medicine; ATTEND Internal Medicine
DX: A41.9 Sepsis, unspecified organism (principal); L03.113 Cellulitis of right upper limb; B02.9 Zoster without complications; F17.200 Nicotine dependence, unspecified, uncomplicated; K75.9 Inflammatory liver disease, unspecified; B95.62 Methicillin resistant Staphylococcus aureus infection as the cause of diseases classified elsewhere
CPT/HCPCS: 36415; 73070; 73218; 76705; 80053; 80202; 83036; 83605; 85025; 85610; 85730; 86360; 86701; 86703; 86704; 86709; 86803; 87040; 87070; 87340; 87536; 96365; 96375; G0378; J0360; J1644; J2270; J2543; J3370; J7030

== ENCOUNTER 2018-07-29 19:57 | Emergency (ER) | payer SELFPAY ==
[~2018-07-29] VITALS: Ht 175.3 cm; Wt 79.4 kg
[~2018-07-29 19:57] MED LIST changes: -ACYC800T5 PO; -CEPH-443 PO; +DOXY100T2 PO; -HYDR-3980 PO; -SULF1TAB31 PO; +VALA500T PO
[2018-07-29 20:08] VITALS: BP 163/99; PULSE 95; RESP 19; Ht 175.3 cm; Wt 79.4 kg
[2018-07-30] MEDS ORDERED: CLINDAMYCIN 300 MG INJ IM ONE
[2018-07-30] MEDS ORDERED: ACET-141 PO (00:36)
[2018-07-30] MEDS ORDERED: SULF1TAB31 PO (00:36)
[2018-07-30] MEDS ORDERED: CEPH-443 PO (00:36)
--- NOTE | 2018-07-30 00:41 | ERD ---
ER Documentation Chief Complaint Chief Complaint LT VELAZQUEZ REDNESS, SWELLING AND PAIN X4 DAYS HPI 43-year-old male presents for left lower leg swelling and redness times 4 days. He states that he has 8 out of 10 pain, described as a burning sensation. There is no pain radiation. He thinks that he may have been split by a biter and subsequently developed leg infection. Denies any fevers or chills. Denies significant past medical history. Denies history of drug use. ROS All systems reviewed and are negative except as per history of present illness. Medications Home Meds Active Scripts Acetaminophen* (Acetaminophen*) 500 MG Extra Strength Tablet, 500 MG PO Q4H PRN for PAIN AND OR ELEVATED TEMP, #30 TAB Prov:ELIZABETH HERRERA DO 07/30/18 Cephalexin* (Keflex*) 500 Mg Capsule, 500 MG PO TID for skin infection for 7 Days, #21 CAP Prov:ELIZABETH HERRERA DO 07/30/18 Sulfamethoxazole/Trimethoprim* (Bactrim Ds* Tablet) 1 Each Tablet, 1 TAB PO BID for skin infection for 7 Days, #14 TAB Prov:ELIZABETH HERRERA DO 07/30/18 Doxycycline* (Vibramycin*) 100 Mg Tab, 100 MG PO BID for 10 Days, TAB Prov:LISA OVIEDO MD 04/13/18 valAcyclovir Hcl* (valACYclovir Hcl*) 500 Mg Tablet, 1000 MG PO TID for 3 Days, #9 TAB Prov:LISA OVIEDO MD 04/13/18 Allergies Allergies: Coded Allergies: No Known Allergy (Unverified , 04/11/18) PMhx/Soc Medical and Surgical Hx: pt denies Surgical Hx History of Surgery: No Anesthesia Reaction: No Hx Neurological Disorder: No Hx Respiratory Disorders: No Hx Cardiac Disorders: No Hx Psychiatric Problems: No Hx Miscellaneous Medical Probl: Yes (Hepatitis) Hx Alcohol Use: No Hx Substance Use: Yes (MARIJUANA) Hx Tobacco Use: Yes Smoking Status: Current every day smoker Physical Exam Vitals Vital Signs Date Temp Pulse Resp B/P (MAP) Pulse Ox O2 O2 Flow FiO2 Time Delivery Rate 07/29/18 98.5 95 19 163/99 92 20:08 (120) Physical Exam Const: No acute distress Resp: Clear to auscultation bilaterally Cardio: Regular rate and rhythm, no murmurs Skin: Left lower leg erythematous area about 3 cm noted, there is no underlying fluctuance, there is increased warmth. Back: No midline or flank tenderness Ext: No cyanosis, or edema Neur: Awake and alert, bilateral lower extremity sensation intact Psych: Normal Mood and Affect Results 24 hrs Current Medications Medications Dose Sig/Juan Start Time Status Last (Trade) Ordered Route PRN Stop Time Admin Dose Reason Admin Clindamycin 300 mg ONCE ONCE 07/30/18 DC 07/29/18 Phosphate IM 00:00 23:46 (Cleocin) 07/30/18 00:01 Procedures/MDM Medical Decision Making: Differential diagnosis includes but not limited to left lower leg cellulitis, abscess, dermatitis Patient appeared well on physical exam. Nontoxic appearing Physical examination consistent with a left lower leg cellulitis. There is no underlying abscess noted. ED course: Patient was given IM clindamycin in the ER Prescription(s): Patient given prescription for supportive medication(s) and Bactrim and Keflex. Patient advised to return to the ED in 48 hours for recheck. Patient advised to follow up with PCP in 1-2 days. Patient advised to return to ED for new or worsening symptoms. Patient stable on discharge from the ED. Disclaimer: Inadvertent spelling and grammatical errors are likely due to EHR/dictation software use and do not reflect on the overall quality of patient care. Also, please note that the electronic time recorded on this note does not necessarily reflect the actual time of the patient encounter. Departure Diagnosis: Primary Impression: Cellulitis Site of cellulitis: extremity Site of cellulitis of extremity: lower extremity Laterality: left Qualified Codes: L03.116 - Cellulitis of left lower limb Condition: Fair Patient Instructions: Cellulitis Referrals: [facility] YOU HAVE RECEIVED A MEDICAL SCREENING EXAM AND THE RESULTS INDICATE THAT YOU DO NOT HAVE A CONDITION THAT REQUIRES URGENT TREATMENT IN THE EMERGENCY DEPARTMENT. FURTHER EVALUATION AND TREATMENT OF YOUR CONDITION CAN WAIT UNTIL YOU ARE SEEN IN YOUR DOCTORS OFFICE WITHIN THE NEXT 1-2 DAYS. IT IS YOUR RESPONSIBILITY TO MAKE AN APPOINTMENT FOR FOLOW-UP CARE. IF YOU HAVE A PRIMARY DOCTOR --you should call your primary doctor and schedule an appointment IF YOU DO NOT HAVE A PRIMARY DOCTOR YOU CAN CALL OUR PHYSICIAN REFERRAL HOTLINE AT IF YOU CAN NOT AFFORD TO SEE A PHYSICIAN YOU CAN CHOSE FROM THE FOLLOWING [facility] [address] [facility] [address] [facility] [address] [facility] [address] [facility]. [facility] [address] [facility]. [facility] [address] Additional Instructions: Call your primary care doctor TOMORROW for an appointment during the next 1-2 days.See the doctor sooner or return here if your condition worsens before your appointment time. Return to ED in 48 hours for wound check. ELIZABETH HERRERA DO Jul 30, 2018 00:41
== END 2018-07-30 01:45 | disposition home or self-care (01) ==
LOC: FTE 19:57
DX: L03.116 Cellulitis of left lower limb (principal); F17.210 Nicotine dependence, cigarettes, uncomplicated
CPT/HCPCS: 96372